=== PATIENT | female | born 1950 | race Two or more races ===

== ENCOUNTER 2024-04-28 09:06 | Inpatient (IN) | payer MEDICARE, MEDICAID, SELFPAY ==
[2024-04-28] VITALS (10 sets, daily range): BP systolic 126–194; BP diastolic 72–102; PULSE 60–84; RESP 16–24; TEMP 36.2–37.3; O2SAT 95–98; BMI 28.3
--- NOTE | 2024-04-28 10:53 | PD.EDSEIZ ---
ED Seizures RME/HPI General Chief Complaint: Seizure Stated Complaint: SEIZURE Time Seen by Provider: 04/28/24 10:39 Arrival date/time: 04/28/24 09:06 RME / HPI RME / HPI Narrative: DR. NAPIER MAIN ED EVALUATION: 74 year old female with presents to the Emergency Department [facility] from home accompanied by her granddaughter with complaint of seizure lasted 10 seconds. Per granddaughter, patient has dementia and she usually helps her in the morning to get up; patient got up to urinate and then changed into her clothes. When patient bent over to change, the patient stiffened and granddaughter assisted her and patient started shaking and started snoring. Granddaughter denies any recent sickness. No cough, cold, congestion, fevers, chills, constipation, or other symptoms. Granddaughter denies any seizures in the past. No new medications. No tobacco, alcohol, or substance use. No fall or injury. Per granddaughter, patient has been having diarrhea intermittently for a week, first few days is was about 5 episodes per day, no less and first day the stools were loose and the next days it was watery. Granddaughter reports that patient has been eating and drinking well, normal appetite. PMHx: Baseline Alzheimer's dementia, hypertension, hypothyroidism, and non-insulin dependent type 2 diabetes mellitus. Patient is on a baby ASA. Social Hx: No tobacco, alcohol, or substance use. Related Data Home Medications ?Medication ?Instructions ?Recorded ?Confirmed aspirin 81 mg tablet,delayed 81 mg DAILY 05/02/23 05/02/23 release atorvastatin 20 mg tablet 20 mg DAILY 05/02/23 05/02/23 levothyroxine 50 mcg tablet 50 mcg DAILY 05/02/23 05/02/23 losartan 50 mg tablet 50 mg DAILY 05/02/23 05/02/23 metformin 500 mg tablet 500 mg BID 05/02/23 05/02/23 mirtazapine 7.5 mg tablet 7.5 mg DAILY 05/02/23 05/02/23 Allergies Allergy/AdvReac Type Severity Reaction Status Date / Time No Known Allergies Allergy Verified 05/02/23 05:24 Review of Systems Review of Systems ROS Unobtainable: unobtainable due to mental status and unobtainable due to medical condition Past Medical History Past Medical History NEUROLOGIC: Positive Dementia and Seizures CARDIAC: Positive Hypertension; Negative Congestive Heart Failure RESPIRATORY: Negative Chronic Obstructive Pulmonary Disease (COPD) GENITOURINARY: Negative Renal Disease ENDOCRINE: Positive Diabetes Mellitus Type 2; Negative Diabetes Mellitus Type 1 Social History SMOKING STATUS: Never smoker SUBSTANCE USE: does not use ALCOHOL: Never ED Exam Narrative Physical exam: GENERAL APPEARANCE: awake, but is not able to answer questions to assess orientation, generally well-appearing, no acute distress. HEENT: NC, AT. MMM. EOMI, circumferential subconjunctival hemorrhage on the right side, oropharynx clear. NECK: Supple without lymphadenopathy. No stiffness or restricted ROM. HEART: Normal rate and regular rhythm, normal S1/S1, no m/r/g LUNGS: CTAB, moving air well. No crackles or wheezes are heard. ABDOMEN: Soft, nontender, nondistended with good bowel sounds heard. BACK: No midline C/T/L spine pain or deformity, No CVAT, no obvious deformity. EXTREMITIES: Without cyanosis, clubbing or edema. MUSCULOSKELETAL: FROM of all major joints, no chest tenderness NEUROLOGICAL: awake, but is not able to answer questions to assess orientation Skin: Warm and dry without any rash. Course Quality Measures none Orders Category Date Time Status In and Out Catheter X1 Care 04/28/24 12:[address] head/brain wo con Stat Exams 04/28/24 11:02 Completed XR chest 1V Stat Exams 04/28/24 11:05 Completed CBC Stat Lab 04/28/24 11:20 Completed CMP [Comprehensive Metabolic Panel] Stat Lab 04/28/24 11:20 Completed Urinalysis Stat Lab 04/28/24 12:04 Completed Reevaluation(s) Reevaluation #1: Re-assessment at the time of disposition demonstrates that the patient is in no acute distress and now talking 1-2 sentences, before was not talking at all but it is still not her normal per granddaughter. Will consult with Dr. Packer. Time: 13:34 Vital Signs Vital signs: Vital Signs Temperature 97.4 F 04/28/24 09:32 Pulse Rate 61 04/28/24 09:32 Respiratory Rate 16 04/28/24 09:32 Blood Pressure 143/88 H 04/28/24 09:32 Pulse Oximetry (%) 95 04/28/24 09:32 Oxygen Delivery Method Room Air 04/28/24 09:32 Seizure MDM Narrative MDM Narrative:: I, Cyn Skaggs, am scribing for and in the presence of Dr. Napier. Patient data External records reviewed:: EMS form Clinical information provided by:: EMS and family (granddaughter) Social determinants that could affect healthcare access:: none Patient has the following chronic illnesses:: Baseline Alzheimer's dementia, hypertension, hypothyroidism, and non-insulin dependent type 2 diabetes .mellitus How is presenting disease/condition affected by chronic disease/condition?: exacerbated by Evaluation data The following diagnostics were reviewed and interpreted by me:: lab results and radiology exam(s) Lab and/or radiology exams considered but not ordered:: none Interpretation Summary: Procedure(s): XR chest 1V Accession Number(s): [id number] cc: Serafin Napier MD; Yusef Rojo MD~ Examination: AP chest single view Technique one AP portable upright chest single view Exam date and time: April 28, 2024 1010 hours INDICATIONS: Weakness beginning 2 days ago. FINDINGS: Normal heart size No pneumonia or pulmonary edema Moderate osteopenia IMPRESSION: No pneumonia or pulmonary edema Dictated By: Yusef Rojo MD Procedure(s): CT head/brain wo con Accession Number(s): [id number] cc: Serafin Napier MD; Yusef Rojo MD~ Examination: CT brain head without contrast. 2-D sagittal coronal reconstructions Date and time of exam:April 28, 2024 1131 hours Comparison November 12, 2023 INDICATIONS: Seizure today CTDI: vol (mGy):50.1 DLP: (mGycm):1021 Technique: Multiple CT axial sections of the brain have been obtained, 5 mm slice thickness. Contrast has not been administered. 2-D sagittal, coronal reconstructions have been obtained Low dose protocols were performed. One or more of the following dose reduction techniques were used; automated exposure control, adjustment of the mA and/or KV according to patient size, use of iterative reconstruction technique. Findings: Mild ventricular enlargement. Intra-axial or extra-axial hemorrhage density is not seen. No mass effect or midline shift Basal cisterns are not remarkable. Fourth ventricle is midline. Cranial vault intact. Impression: Negative for acute hemorrhage, mass effect or midline shift Consider brain MRI follow-up, seizure protocol Dictated By: Yusef Rojo MD Medications / Prescriptions Medications or Prescriptions considered but not ordered:: none Medication administrations:: see above if any Consultations Consultation(s) initiated? (list below): Yes Consultation #1 (Physician, Specialty, Details): Discussed test HPI, PMHx, lab, radiology results and/or management with Dr. Packer. We discussed the circumferential subconjunctival hemorrhage on the right side as well and Dr. Packer thinks that today must be her second seizure. Usually if it was her first seizure she would not start Keppra but taking into account this is probably her second one she will start the patient on Keppra and admit the patient for an EEG and a MRI. Will consult an admission to the hospitalist. Time: 13:36 Consultation #2 (Physician, Specialty, Details): Discussed test HPI, PMHx, lab, radiology results and/or management with hospitalist. Will admit for further evaluation and management. Accepts patient for admission. Time: 13:43 Diagnosis Seizure Differential Diagnosis: generalized seizure, new onset seizure and epileptic seizure Most likely diagnosis given after review of the tests above:: New onset seizures Admission Indicated Admission indicated?: indicated Admission Request Was there a request for admission?: Yes Admission Attestation Admission request attestation: Discussed case with [] from Hospitalist service regarding admission. Discussed patients ED course, exam findings, labs, and radiology results. The Hospitalist [agrees,declines] to accept the patient for admission. Disposition Plan Disposition Plan: Admit Discharge Plan Plan Patient Disposition: Admit Acute Care w/in Hospital Prescriptions/Referrals Prescriptions/Med Rec: No Action losartan 50 mg tablet 50 mg DAILY Patient Comments: TAKE 1 TABLET BY MOUTH EVERY DAY FOR 30 DAYS metformin 500 mg tablet 500 mg BID Patient Comments: TAKE 1 TABLET BY MOUTH TWICE A DAY WITH MEAL 15 DAYS atorvastatin 20 mg tablet 20 mg DAILY aspirin 81 mg tablet,delayed release (DR/EC) 81 mg DAILY Patient Comments: TAKE 1 TABLET BY MOUTH EVERY DAY levothyroxine 50 mcg tablet 50 mcg DAILY Patient Comments: TAKE 1 TABLET BY MOUTH EVERY DAY mirtazapine 7.5 mg tablet 7.5 mg DAILY Patient Comments: TAKE 1 TABLET BY MOUTH EVERYDAY AT BEDTIME Referrals: No Primary/Family,Physician [Primary Care Provider] - In 1 week Problem List Clinical Impression: New onset seizure Patient/Caregiver Discharge Instructions Print Language: Kittitian Stand Alone Forms: Kalina Award Info., Patient Portal Info Letter
--- NOTE | 2024-04-28 11:02 | XR_ITS ---
Examination: CT brain head without contrast. 2-D sagittal coronal reconstructions Date and time of exam:April 28, 2024 1131 hours Comparison November 12, 2023 INDICATIONS: Seizure today CTDI: vol (mGy):50.1 DLP: (mGycm):1021 Technique: Multiple CT axial sections of the brain have been obtained, 5 mm slice thickness. Contrast has not been administered. 2-D sagittal, coronal reconstructions have been obtained Low dose protocols were performed. One or more of the following dose reduction techniques were used; automated exposure control, adjustment of the mA and/or KV according to patient size, use of iterative reconstruction technique. Findings: Mild ventricular enlargement. Intra-axial or extra-axial hemorrhage density is not seen. No mass effect or midline shift Basal cisterns are not remarkable. Fourth ventricle is midline. Cranial vault intact. Impression: Negative for acute hemorrhage, mass effect or midline shift Consider brain MRI follow-up, seizure protocol
--- NOTE | 2024-04-28 11:05 | XR_ITS ---
Examination: AP chest single view Technique one AP portable upright chest single view Exam date and time: April 28, 2024 1010 hours INDICATIONS: Weakness beginning 2 days ago. FINDINGS: Normal heart size No pneumonia or pulmonary edema Moderate osteopenia IMPRESSION: No pneumonia or pulmonary edema
--- NOTE | 2024-04-28 11:27 | PC.NURSE ---
PATIENT TAKEN TO CT AT THIS TIME.
[2024-04-28 11:43] LABS: Basophils % (Auto) 0 % (0-2.5); Eosinophils % (Auto) 0 % (0-10); Hematocrit 36.8 % (36.0-46.0); Hemoglobin 10.9 g/dL (12.0-16.0); Immature Granulocytes % (Auto) 1 % (0-0); Immature Granulocytes Auto 0.07 Thou/mm3 (0.00-0.00); Lymphocytes % (Auto) 9 % (10-50); Mean Corpuscular HGB Conc 29.6 g/dl (31.0-37.0); Mean Corpuscular Hemoglobin 23.6 pg (25.0-35.0); Mean Corpuscular Volume 80 fL (80-100); Monocytes # (Auto) 0.4 Thou/mm3 (0.0-0.8); Monocytes % (Auto) 4 % (0-12); Neutrophils # (Auto) 10.1 Thou/mm3 (1.8-7.7); Neutrophils % (Auto) 87 % (37-80); Nucleated Red Blood Cell % 0 /100 WBC (0); Platelet Count 241 Thou/mm3 (140-440); RDW Standard Deviation 44.8 fL (36.4-46.3); Red Blood Count 4.61 Miln/mm3 (4.00-5.20); White Blood Count 11.6 Thou/mm3 (3.6-11.0)
[2024-04-28 12:05] LABS: Alanine Aminotransferase 12 U/L (10-49); Albumin, Serum 4.2 gm/dL (3.4-4.8); Albumin/Globulin Ratio 1.6 (1.2-2.2); Alkaline Phosphatase 71 U/L (46-116); Anion Gap 10 (7-16); Aspartate Amino Transferase 18 U/L (0-34); BUN/Creatinine Ratio 23 Ratio (12-20); Blood Urea Nitrogen 18 mg/dL (9-23); Calcium 10.1 mg/dL (8.3-10.6); Calcium (Corrected) 10.1 mg/dL (8.5-10.1); Carbon Dioxide 25.6 mMol/L (20.0-31.0); Chloride 108 mMol/L (98-107); Creatinine (Component) 0.8 mg/dL (0.6-1.3); Estimated Creatinine Clearance 57.1 mL/min (>60); Globulin 2.6 gm/dL (2.3-3.5); Glucose 169 mg/dL (74-106); Osmolality,Calculated 292 (275-295); Potassium 4.4 mMol/L (3.4-5.1); Sodium 144 mMol/L (136-145); Total Protein 6.8 gm/dL (5.7-8.2); eGFR > 60 See Note
[2024-04-28 12:07] LABS: Collection Type, Urine Catheter; RBC,Urine 0 /hpf (0-3); Squamous Epithelial Cell,Urine 0 /hpf (0-5)
[2024-04-28 12:26] LABS: Amorphous Crystals,Urine Present (Absent); Bacteria,Urine Rare; Bilirubin,Urine Negative (Negative); Blood,Urine Negative (Negative); Clarity,Urine Clear (Clear/Hazy); Color,Urine Yellow (Lt Yel-Yel); Glucose, Urine Negative (Negative); Ketones,Urine Negative (Negative); Leukocyte Esterase,Urine Negative (Negative); Nitrite,Urine Positive (Negative); PH,Urine 5.5 (5.0-7.0); Protein,Urine 1+ (Neg - Trace); Specific Gravity,Urine 1.021 (1.001-1.035); Urobilinogen,Urine Negative mg/dL (0.0-1.0); WBC,Urine 2 /hpf (0-5)
[2024-04-28] MEDS: levETIRAcetam INJ 100 MG/ML VIAL 5ML 1000 MG IVP (14:01)
--- NOTE | 2024-04-28 15:48 | ESHP_ITS ---
<Statement entered by Krzysztof Gregory MD - 04/28/24 16:46> This patient is a 74-year-old female with past medical history of seizures, Parkinson disease, Alzheimer dementia, hypertension, hypothyroidism, [id number] type 2 diabetes presented with tonic-clonic seizures witnessed by the family. Apparently, patient had an episode of subconjunctival hemorrhage in right eye 2 days ago and possible? Seizure unwitnessed. Patient has a history of syphilis infection possibly treated per patient's niece. There was a concern for severe dementia as patient ate dog feces according to niece. Neurology, 's regarding was consulted to recommended to give loading dose of Keppra and recommended to order EEG and MRI brain for further evaluation. We ordered creatinine kinase. Labs were showing stable hemoglobin and WBC. Electrolytes unremarkable. Kidney functions stable. Aspiration precautions, nurse swallow screen and seizure precautions ordered. Ativan 2 mg ordered every 15 minute for breakthrough seizures. Will follow-up with MRI and EEG with neurology recommendations. Only levothyroxine was resumed for tomorrow morning. Patient is not taking any medications for parkinsonism. All labs and orders were reviewed. I saw and examined the patient, and I agree with current management stated by Dr Cristian MD,PGY1. Plan of care was discussed with the attending physician and resident physician. Disclaimer: Despite multiple revisions, due to the dictation software being used, the document bellow may not be free of grammatical errors including phonetic/typographic errors. However, this does not deter from our commitment to providing health care in the patient's best interest in mind. Dr. Colt MD, PGY 2 Documentation for date of: 04/28/24 HPI History of Present Illness History of present illness: Amy Ventura is a 74-year-old female with past medical history of Parkinson's disease, dementia, hypothyroidism, type 2 diabetes mellitus, hypertension, and hyperlipidemia who presents to the ED on 04/28 after witnessed seizure episode. Patient lives with her granddaughter, who is her associate sales representative, and witnessed 10 to 15 seconds seizure while at home at approximately 8:15 AM. Granddaughter describes stiff body posture and was helped to the ground, afterwards patient noted to have blood in oral cavity and had a loud snore. At baseline, patient is oriented to self and birthdate but not to year or place and incontinent with her bowel movements and urination. She is also normally very active but was very lethargic yesterday. Of note, patient also has scleral hemorrhage that was not present Thursday evening but was Thursday morning. She does have a history of a seizure 1 time approximately a year ago after drinking a bottle of hand starch and prosize mixer and was taken care of at [facility]. Given that seizure was attributable to consuming hand starch and prosize mixer, she was not discharged with an AED nor did she follow-up with a neurologist. Niece at bedside also states that patient had consumed dog feces a couple of days ago and was treated for syphilis about four years ago at [facility] in [place]. Niece also states that patient is not on any medications for Parkinson's. In ED VSS, WBC 11.6, Hgb 10.9, CMP unremarkable, UA clean, U tox negative. CT head showed brain atrophy with pseudo ventriculomegaly but no hemorrhage, mass effect, or midline shift. CXR negative for acute cardiopulmonary disease. EKG showed sinus bradycardia with heart rate of 58 bpm. Given loading dose of Keppra 1 g IV x 1 and started maintenance LR at 75 cc/h. Admitted for further evaluation of seizures. PMHx: Parkinson's disease, dementia, hypothyroidism, type 2 diabetes mellitus, hypertension, hyperlipidemia Medications: atorvastatin 20 mg, levothyroxine 50 mcg, metformin 500 mg, losartan 50 mg, aspirin 81 mg FHx: Dementia in her mother SHx: No current or previous history of smoking cigarettes, drinking alcohol, or illicit drug use; lives with granddaughter and [id number] PSHx: Tonsillectomy Exam Vital Signs Temp Pulse Resp BP Pulse Ox O2 Del Method 97.4 F 60 17 126/89 H 97 Room Air 04/28/24 09:32 04/28/24 14:12 04/28/24 14:12 04/28/24 14:12 04/28/24 14:12 04/28/24 14:12 Narrative Exam General: Postictal, occasionally opens eyes to voice, follows some commands HEENT: Dried blood on right side of mouth, right-sided scleral hemorrhage, unable to obtain full review of oral cavity Cardiovascular: Bradycardic, regular rhythm, loud systolic murmur appreciated Pulmonary: clear to auscultation bilaterally, no rales/rhonchi/wheezes Abdominal: soft, non-tender, non-distended, no rebound/guarding, normal bowel sounds present Musculoskeletal: no peripheral edema Skin: warm and dry, intact, no rashes Neuro: Postictal, bilateral pill-rolling tremor Results: Labs 04/30/24 05:22 04/30/24 05:22 Labs: Short CBC 04/28/24 Range/Units 11:20 WBC 11.6 H (3.6-11.0) Thou/mm3 Hgb 10.9 L (12.0-16.0) g/dL Hct 36.8 (36.0-46.0) % Plt Count 241 (140-440) Thou/mm3 BMP 04/28/24 11:20 Sodium 144 Potassium 4.4 Chloride 108 H Carbon Dioxide 25.6 BUN 18 Creatinine 0.8 Glucose 169 H Calcium 10.1 Liver Function 04/28/24 Range/Units 11:20 Total Bilirubin 1.0 (0.3-1.2) mg/dL AST 18 (0-34) U/L ALT 12 (10-49) U/L Alkaline Phosphatase 71 (46-116) U/L Albumin 4.2 (3.4-4.8) gm/dL Urine 04/28/24 Range/Units 12:04 Urine Color Yellow (Lt Yel-Yel) Urine Clarity Clear (Clear/Hazy) Urine pH 5.5 (5.0-7.0) Ur Specific [place] 1.021 (1.001-1.035) Urine Protein 1+ A (Neg - Trace) Urine Glucose (UA) Negative (Negative) Quality Measures Quality Measures none Advance care planning discussed with:: other Medications Home Medications and Allergies Home Medications ?Medication ?Instructions ?Recorded ?Confirmed ?Type aspirin 81 mg tablet,delayed 81 mg PO DAILY 05/02/23 0 04/28/24 History release atorvastatin 20 mg tablet 20 mg PO DAILY 05/02/2304/10 History levothyroxine 50 mcg tablet 50 mcg PO DAILY 05/02/23 0 04/28/24 History losartan 50 mg tablet 50 mg PO DAILY 05/02/2304/10 History metformin 500 mg tablet 500 mg PO DAILY 05/02/23 History Allergies Allergy/AdvReac Type Severity Reaction Status Date / Time No Known Allergies Allergy Verified 05/02/23 05:24 Visit Medications Acetaminophen (Acetaminophen Supp 650 Mg Supp) 650 mg LA Q6HR PRN PRN Reason: PAIN OR FEVER > 100.4 Stop: 05/28/24 15:23 Dextrose (Dextrose 50%-Water Inj 50 Ml Syringe) 25 ml IV Q15MIN PRN PRN Reason: BG 50-70 responsive npo pt Stop: 05/28/24 15:23 Dextrose (Dextrose 50%-Water Inj 50 Ml Syringe) 50 ml IV Q15MIN PRN PRN Reason: BG <50 OR BG <70 & pt unresponsive Stop: 05/28/24 15:23 Glucagon (Glucagon Inj 1 Mg Vial) 1 mg IM Q15MIN PRN PRN Reason: BG <70, and no IV access Heparin Sodium (Porcine) (Heparin Sod Inj 5000 Unit/Ml Vial) 5,000 unit SC Q12HR RIKI Stop: 05/12/24 20:59 Lactated Ringer's (Lactated Ringers) 1,000 mls @ 75 mls/hr IV .[id number] RIKI Stop: 05/28/24 15:29 Insulin Human Lispro (Insulin Lispro (Admelog) 1 Unit/0.01 Ml Unit) 0 unit SC Q6HR RIKI; Protocol Stop: 05/28/24 17:59 Ondansetron HCl (Ondansetron Inj 2 Mg/Ml Inj 2 Ml) 4 mg IV Q6H PRN; Protocol PRN Reason: NAUSEA OR VOMITING Stop: 05/28/24 15:23 Pantoprazole Sodium (Pantoprazole Inj 40 Mg Vial) 40 mg IVP QDAY RIKI Stop: 05/29/24 08:59 Discontinued Medications Levetiracetam (Levetiracetam Inj 100 Mg/Ml Vial 5ml) 1,000 mg IVP X1 ONE Stop: 04/28/24 13:43 Last Admin: 04/28/24 14:01 Dose: 1,000 mg Assessment & Plan Plan Amy Ventura is a 74-year-old female with past medical history of Parkinson's disease, dementia, hypothyroidism, type 2 diabetes mellitus, hypertension, and hyperlipidemia who presents to the ED on 04/28 after witnessed seizure episode. Admitted for further evaluation of seizures. #Tonic seizure #History of seizure secondary to consumption of hand starch and prosize mixer Witnessed seizure by granddaughter for 10 to 15 seconds in a.m. and was still postictal upon evaluation in early afternoon. Noted to have dried blood on right side of mouth as well as right-sided scleral hemorrhage. Given loading dose of Keppra in ED of 1 g IV and will continue 500 mg IV twice daily per neurology recommendations. U tox negative, creatinine kinase normal. ? Neurology consulted, appreciate recommendations ? Keppra 500 mg IV twice daily ? As needed Ativan for breakthrough seizures ? Follow-up EEG ? Follow-up MRI ? N.p.o. ? Failed nurse swallow screen, pending swallow evaluation ? Aspiration precautions ? Seizure precautions, q4hr neurochecks #History of syphilis #Reactive syphilis serology ? Follow-up VDRL and treponemal testing #Parkinson's disease #Dementia At baseline, patient is A&O x 2, normally very active, also incontient with BMs and when urinating. Per niece and granddaughter, not on any Parkinson drugs at home. CT head showed brain atrophy with pseudo ventriculomegaly. ? Continue to monitor and follow-up outpatient #Hypothyroidism ? Home levothyroxine 50 mcg a CVR, pending swallow eval #Type 2 diabetes mellitus A1c 6.7% on this admission. Home metformin 500 mg daily. ? SSI step 1 every 6 hours ? Hypoglycemic protocol in place #Hypertension ? Home losartan 50 mg p.o. daily, pending swallow eval #Hyperlipidemia ? Home atorvastatin 20 mg p.o. daily, pending swallow eval Hospital management: Disposition: Seizure workup, neurology following, pending MRI and EEG Fluids: None Diet: N.p.o., pending speech evaluation Lines: PIV DVT prophylaxis: Heparin SC BID GI prophylaxis: Pantoprazole 40 mg IV daily CODE STATUS: full code ----- Plan discussed with attending physician Dr. Jimenez and senior resident physician Dr. Colt Foster MD PGY-1 Internal Medicine Attending Provider Attestation/Addendum I have discussed and was present for the essential components of the history, physical examination, diagnosis, and treatment plan with the resident. I agree with the patient's care as documented by the resident and amended herein by me. Jeff Jimenez DO. Although this document has been carefully reviewed, there may still be some phonetic and other typographical errors. These errors are purely grammatical due to imperfections in the software program and should not be construed in any way to compromise the substance of the patient's medical care during this visit.
--- NOTE | 2024-04-28 15:49 | EKG_ITS ---
[facility] Test Date: 2024-04-28 Pat Name: EDNA ALEXANDRA Department: Room: - Gender: Female Ward Clerk: : [id number] Requested By: Krzysztof Gregory Order Number: [id number] Reading MD: Krzysztof Gregory Measurements Intervals [place] Rate: 58 P: 18 TX: 183 QRS: -14 QRSD: 79 T: 111 QT: 433 QTc: 427 Interpretive Statements SINUS BRADYCARDIA LEFT VENTRICULAR HYPERTROPHY AND ST-T CHANGE [VOLTAGE CRITERIA PLUS ST/T ABNORMALITY] No previous ECG available for comparison /store/S0/[id number]/ecg/[id number].pdf
[2024-04-28] MEDS: RINGERS LACTATED 1000 ML 1,000 ML 75 ML IV (16:18)
[2024-04-28 16:31] LABS: Creatine Kinase 41 U/L (34-171); Magnesium 2.1 mg/dL (1.6-2.6)
[2024-04-28 16:57] LABS: MHATP/TP-PA* See Sep Rpt; Syphilis Reactive (Nonreactive)
--- NOTE | 2024-04-28 17:11 | PC.NURSE ---
DR. LYNCH AT BEDSIDE AND REVIEWED EKG.
[2024-04-28 17:45] LABS: Amphetamine/Methamp Scrn,U Negative (Negative); Barbiturate Screen,Urine Negative (Negative); Benzodiazepines Screen,Urine Negative (Negative); Benzoylecgonine Screen, Ur Negative (Negative); Fentanyl Screen,Urine Negative (Negative); Opiate Screen,Urine Negative (Negative); THC Screen,Urine Negative (Negative)
--- NOTE | 2024-04-28 21:35 | PD.NEUROCONS ---
History of Present Illness Data of Consult Requesting Physician: Norbert Jimenez DO Primary Care Provider: Physician No Primary/Family Consult Narrative cc:: cc: Norbert Jimenez, DO Meds Home Medications and Allergies Home Medications ?Medication ?Instructions ?Recorded ?Confirmed ?Type aspirin 81 mg tablet,delayed 81 mg PO DAILY 05/02/23 04/28/24 History release atorvastatin 20 mg tablet 20 mg PO DAILY 05/02/23 04/28/24 History levothyroxine 50 mcg tablet 50 mcg PO DAILY 05/02/23 04/28/24 History losartan 50 mg tablet 50 mg PO DAILY 05/02/23 04/28/24 History metformin 500 mg tablet 500 mg PO DAILY 05/02/23 04/28/24 History Allergies Allergy/AdvReac Type Severity Reaction Status Date / Time No Known Allergies Allergy Verified 05/02/23 05:24 Exam - Neurology Vital Signs Temp Pulse Resp BP Pulse Ox O2 Del Method 98.4 F 61 19 194/98 H 97 Room Air 04/28/24 21:29 04/28/24 21:29 04/28/24 21:29 04/28/24 21:29 04/28/24 21:29 04/28/24 21:29 Results Labs 04/28/24 11:20 04/28/24 11:20 Labs: Short CBC 04/28/24 Range/Units 11:20 WBC 11.6 H (3.6-11.0) Thou/mm3 Hgb 10.9 L (12.0-16.0) g/dL Hct 36.8 (36.0-46.0) % Plt Count 241 (140-440) Thou/mm3 BMP 04/28/24 11:20 Sodium 144 Potassium 4.4 Chloride 108 H Carbon Dioxide 25.6 BUN 18 Creatinine 0.8 Glucose 169 H Calcium 10.1 Cardiac Enzymes 04/28/24 Range/Units 11:20 Total Creatine Kinase 41 (34-171) U/L Liver Function 04/28/24 Range/Units 11:20 Total Bilirubin 1.0 (0.3-1.2) mg/dL AST 18 (0-34) U/L ALT 12 (10-49) U/L Alkaline Phosphatase 71 (46-116) U/L Albumin 4.2 (3.4-4.8) gm/dL Urine 04/28/24 Range/Units 12:04 Urine Color Yellow (Lt Yel-Yel) Urine Clarity Clear (Clear/Hazy) Urine pH 5.5 (5.0-7.0) Ur Specific [place] 1.021 (1.001-1.035) Urine Protein 1+ A (Neg - Trace) Urine Glucose (UA) Negative (Negative)
[2024-04-28] MEDS: HEPARIN SOD INJ 5000 UNIT/ML VIAL SC (21:56)
[2024-04-28] MEDS: hydrALAZINE INJ 20 MG/ML VIAL 10 MG IV (21:56)
[2024-04-29] VITALS (11 sets, daily range): BP systolic 136–194; BP diastolic 68–88; PULSE 50–81; RESP 16–24; TEMP 36.1–37.2; O2SAT 95–98; BMI 27.8
--- NOTE | 2024-04-29 | XR_ITS ---
Examination: MRI brain without intravenous contrast. Date and time of exam: April 29, 2024 1800 hours Comparison May 02, 2023 INDICATIONS: Seizure history, dementia, type 2 diabetes, hemorrhage in the right eye 2 days ago Technique: Multiple axial and sagittal images of the brain obtained. Siemens high-resolution 1.5 Pippa short bore scanners utilized. Sagittal sections, T1-weighted, TR 500, TE 14, are performed. Axial sections proton-density and T2-weighted have been obtained. Inversion recovery axial images, TR 9, 260, TE 111, TI 2500. Diffusion weighted images, axial sections, TR 4800, TE 128, B value 1000 Axial sections, ADC map, TR 4800, TE 128 Findings: Enlargement of the sella turcica is not present. The optic chiasm and infundibular are not remarkable. Prepontine and interpeduncular cisterns are not enlarged. There is no localized enlargement of the medulla or billy. Fourth ventricle and cerebellar tonsils appear normal in position. No subacute area of hemorrhage density is seen. Mass in the cerebellopontine angle region is not evident. Globes symmetrical. Orbital musculature including medial lateral rectus muscles do not exhibit abnormality. Diffusion-weighted images demonstrate no focus of restricted diffusion. Increased white matter signal prominent Significant chronic ethmoid frontal sinusitis Mass effect upon the ventricular system is not identified. Impression: Negative for acute hemorrhage mass effect or midline shift No acute infarct Prominent chronic microvascular white matter change Prominent atrophy
--- NOTE | 2024-04-29 01:08 | PC.NURSE ---
Called Dr. Chung patients blood pressure is 194/82. Provider will place orders.
[2024-04-29] MEDS: hydrALAZINE INJ 20 MG/ML VIAL 10 MG IV (01:18)
[2024-04-29] MEDS: DiphenhydrAMINE INJ 50 MG/ML VIAL 12.5 MG IV (01:40)
[2024-04-29 04:59] LABS: Basophils % (Auto) 0 % (0-2.5); Eosinophils % (Auto) 0 % (0-10); Hematocrit 38.1 % (36.0-46.0); Hemoglobin 11.5 g/dL (12.0-16.0); Immature Granulocytes % (Auto) 0 % (0-0); Immature Granulocytes Auto 0.04 Thou/mm3 (0.00-0.00); Lymphocytes # (Auto) 2.1 Thou/mm3 (1.0-4.8); Lymphocytes % (Auto) 22 % (10-50); Mean Corpuscular HGB Conc 30.2 g/dl (31.0-37.0); Mean Corpuscular Hemoglobin 24.2 pg (25.0-35.0); Mean Corpuscular Volume 80 fL (80-100); Monocytes # (Auto) 0.5 Thou/mm3 (0.0-0.8); Monocytes % (Auto) 5 % (0-12); Neutrophils # (Auto) 6.8 Thou/mm3 (1.8-7.7); Neutrophils % (Auto) 72 % (37-80); Nucleated Red Blood Cell % 0 /100 WBC (0); Platelet Count 246 Thou/mm3 (140-440); RDW Standard Deviation 44.9 fL (36.4-46.3); Red Blood Count 4.75 Miln/mm3 (4.00-5.20); White Blood Count 9.4 Thou/mm3 (3.6-11.0)
[2024-04-29 05:21] LABS: Glucose Estimated Average 140 mg/dL (80-131); Hemoglobin A1C 6.5 % Hgb (4.8-6.0)
[2024-04-29 05:22] LABS: Anion Gap 10 (7-16); BUN/Creatinine Ratio 17 Ratio (12-20); Blood Urea Nitrogen 12 mg/dL (9-23); Calcium 9.8 mg/dL (8.3-10.6); Carbon Dioxide 25.6 mMol/L (20.0-31.0); Chloride 106 mMol/L (98-107); Creatinine (Component) 0.7 mg/dL (0.6-1.3); Estimated Creatinine Clearance 65.3 mL/min (>60); Glucose 120 mg/dL (74-106); Osmolality,Calculated 283 (275-295); Potassium 3.7 mMol/L (3.4-5.1); Sodium 142 mMol/L (136-145); Triglycerides 112 mg/dL (30-150); eGFR > 60 See Note
[2024-04-29 05:26] LABS: Cholesterol 145 mg/dL (132-200); HDL Cholesterol 36 mg/dL (40-60); LDL Cholesterol,Calculated 87 mg/dL (0-130); Phosphorous 2.8 mg/dL (2.4-5.1); Thyroid Stimulating Hormone 4.23 uIU/mL (0.55-4.78)
[2024-04-29] MEDS: RINGERS LACTATED 1000 ML 1,000 ML 75 ML IV (05:54)
[2024-04-29] MEDS: LEVOTHYROXINE SODIUM 25 MCG TABLET 50 MCG PO (06:27)
[2024-04-29] MEDS: LOSARTAN POTASSIUM 25 MG TABLET 50 MG PO (06:27)
--- NOTE | 2024-04-29 06:27 | PC.NURSE ---
DR. LETTY TREJO WITH [facility]
[2024-04-29] MEDS: levETIRAcetam INJ 100 MG/ML VIAL 5ML 500 MG IVP ×2 (08:46→20:33)
[2024-04-29] MEDS: ASPIRIN EC 81 MG TABEC PO (08:46)
[2024-04-29] MEDS: HEPARIN SOD INJ 5000 UNIT/ML VIAL SC ×2 (08:46→20:33)
[2024-04-29] MEDS: PANTOPRAZOLE INJ 40 MG VIAL IVP (08:46)
--- NOTE | 2024-04-29 09:55 | PC.SS ---
Initial assessment: this is 74 year old female admitted for seizures. Patient's granddaughter, Jenn at bedside to provided information. Jaxon confirmed home demographic information. Patient lives at home with granddaughter and Jenn's partner Jeanette. Patient able to complete ADL's with some assistance. Patient does not use DME at home. Patient follows [facility] in [place] for primary care, unknown physician. Patient also followed by neurologist out of [facility]. The designated emergency contact is Jenn. Jenn was provided with advance directive to complete. Family is considering the need for possible hospital bed, aware Physician/PT to assess the patient to determine DME needs. D/c plan: Home Next of Kin: Jenn
--- NOTE | 2024-04-29 11:55 | ESPR_ITS ---
Documentation for date of: 04/29/24 Subjective Subjective Interval history: Patient was seen and examined at the bedside. Patient received hydralazine 10 mg times 2 at night due to elevated blood pressure. Blood pressure was elevated this morning therefore patient was started on amlodipine 2.5 mg and continue losartan 50 mg once daily. Labs showed normocytic anemia. Chemistry panel was unremarkable. A1c came out 6.5%. Dr Packer recommended to continue Keppra 500 twice daily and await on MRI brain without contrast and EEG results. We are keeping hydralazine 25 3 times daily as needed if SBP above 180. Fluids were discontinued. Bladder scan was performed as patient is demented which showed about 480 cc straight cath was performed. Repeat bladder scan showed 400 cc patient was encouraged on micturition. If patient continues to retain urine we will likely place Vergara catheter. Family was updated regarding the plan. Syphilis serology came positive most likely from past infection currently awaiting treponema pallidum test. Patient passed swallow screen was started on regular diet. LDL came 87. Will consider ID consultation if treatment with treponema pallidum come positive. All labs and orders were reviewed. Exam Vital Signs Temp Pulse Resp BP Pulse Ox O2 Del Method 97.0 F 70 20 171/88 H 96 Room Air 04/29/24 08:00 04/29/24 08:00 04/29/24 08:00 04/29/24 08:00 04/29/24 08:00 04/29/24 08:00 Narrative Exam General: Postictal, occasionally opens eyes to voice, follows some commands HEENT: Dried blood on right side of mouth, right-sided scleral hemorrhage, unable to obtain full review of oral cavity Cardiovascular: Bradycardic, regular rhythm, loud systolic murmur appreciated Pulmonary: clear to auscultation bilaterally, no rales/rhonchi/wheezes Abdominal: soft, non-tender, non-distended, no rebound/guarding, normal bowel sounds present Musculoskeletal: no peripheral edema Skin: warm and dry, intact, no rashes Neuro: Postictal, bilateral pill-rolling tremor Objective Labs 04/30/24 05:22 04/30/24 05:22 Labs: Laboratory Results - last 24 hr 04/28/24 04/28/24 04/29/24 11:20 12:04 04:35 WBC 11.6 H 9.4 RBC 4.61 4.75 Hgb 10.9 L 11.5 L Hct 36.8 38.1 MCV 80 80 MCH 23.6 L 24.2 L MCHC 29.6 L 30.2 L RDW Std Deviation 44.8 44.9 Plt Count 241 246 Neut % (Auto) 87 H 72 Lymph % (Auto) 9 L 22 [place] % (Auto) 4 5 Eos % (Auto) 0 0 Baso % (Auto) 0 0 Neut # (Auto) 10.1 H 6.8 Lymph # (Auto) 1.0 2.1 [place] # (Auto) 0.4 0.5 Eos # (Auto) 0.0 0.0 Baso # (Auto) 0.0 0.0 Immature Gran # (Auto) 0.07 H 0.04 H Absolute Nucleated RBC 0.00 0.00 Immature Gran % 1 H 0 Nucleated RBC % 0 0 Sodium 144 142 Potassium 4.4 3.7 D Chloride 108 H 106 Carbon Dioxide 25.6 25.6 Anion Gap 10 10 BUN 18 12 Creatinine 0.8 0.7 Estim Creat Clear Calc 57.1 L 65.3 eGFR > 60 > 60 BUN/Creatinine Ratio 23 H 17 Glucose [address] Glu mg/dL 140 H Hemoglobin A1c 6.5 H Calculated Osmolality 292 283 Calcium 10.1 9.8 Corrected Calcium 10.1 Phosphorus 3.0 2.8 Magnesium 2.1 2.0 Total Bilirubin 1.0 AST 18 ALT 12 Alkaline Phosphatase 71 Total Creatine Kinase 41 Total Protein 6.8 Albumin 4.2 Globulin 2.6 Albumin/Globulin Ratio 1.6 Triglycerides 112 Cholesterol 145 LDL Cholesterol, Calc 87 HDL Cholesterol 36 L Cholesterol/HDL Ratio 4.0 TSH 4.23 Ur Collection Type Catheter Urine Color Yellow Urine Clarity Clear Urine pH 5.5 Ur Specific [place] 1.021 Urine Protein 1+ A Urine Glucose (UA) Negative Urine Ketones Negative Urine Blood Negative Urine Nitrite Positive Urine Bilirubin Negative Urine Urobilinogen (Auto) Negative Ur Leukocyte Esterase Negative Urine RBC 0 Urine WBC 2 Ur Squamous Epith Cells 0 Amorphous Crystals Present A Urine Bacteria Rare Urine Opiates Screen Negative Urine Fentanyl Screen Negative Ur Barbiturates Screen Negative U Amphetamin/Meth Scrn Negative U Benzodiazepines Scrn Negative U Cocaine Metab Screen Negative U Marijuana (THC) Screen Negative Syphilis Serology Reactive A Quality Measures Quality Measures VTE prophylaxis Advance care planning discussed with:: other Assessment & Plan Assessment Current Active Medications: Generic Name Dose Route Start Last Admin Trade Name Jaysonq PRN Reason Stop Dose Admin Acetaminophen 650 mg 04/28/24 15:24 Acetaminophen Supp 650 Mg Supp UT 05/28/24 15:23 Q6HR PRN PAIN OR FEVER > 100.4 Amlodipine Besylate 2.5 mg 04/30/24 09:00 Amlodipine Besylate 5 Mg Tablet PO 05/30/24 08:59 QDAY RIKI Aspirin 81 mg 04/29/24 09:00 04/29/24 08:46 Aspirin Ec 81 Mg Tabec PO 05/29/24 08:59 81 mg DAILY RIKI Administration Atorvastatin Calcium 20 mg 04/29/24 21:00 Atorvastatin Calcium 20 Mg Tablet PO 05/29/24 20:59 HS RIKI Dextrose 25 ml 04/28/24 15:24 Dextrose 50%-Water Inj 50 Ml Syringe IV 05/28/24 15:23 Q15MIN PRN BG 50-70 responsive npo pt Dextrose 50 ml 04/28/24 15:24 Dextrose 50%-Water Inj 50 Ml Syringe IV 05/28/24 15:23 Q15MIN PRN BG <50 OR BG <70 & pt unresponsive Glucagon 1 mg 04/28/24 15:24 Glucagon Inj 1 Mg Vial IM Q15MIN PRN BG <70, and no IV access Heparin Sodium (Porcine) 5,000 unit 04/28/24 21:00 04/29/24 08:46 Heparin Sod Inj 5000 Unit/Ml Vial SC 05/12/24 20:59 5,000 unit Q12HR RIKI Administration Hydralazine HCl 25 mg 04/29/24 09:56 Hydralazine Hcl 25 Mg Tablet PO 05/29/24 09:59 TID PRN SBP>180 Insulin Human Lispro 0 unit 04/28/24 18:00 04/29/24 05:53 Insulin Lispro (Admelog) 1 Unit/0.01 Ml Unit SC 05/28/24 17:59 Not Given Q6HR [facility] Protocol Levetiracetam 500 mg 04/29/24 09:00 04/29/24 08:46 Levetiracetam Inj 100 Mg/Ml Vial 5ml IVP 05/29/24 08:59 500 mg Q12HR RIKI Administration Levothyroxine Sodium 50 mcg 04/29/24 06:00 04/29/24 06:27 Levothyroxine Sodium 25 Mcg Tablet PO 05/29/24 05:59 50 mcg ACBR RIKI Administration Lorazepam 2 mg 04/28/24 15:55 Lorazepam 2 Mg/Ml Vial IVP Q15MIN PRN BREAKTHROUGH SEIZURES Losartan Potassium 50 mg 04/29/24 01:45 04/29/24 06:32 Losartan Potassium 25 Mg Tablet PO 05/29/24 01:44 Not Given QDAY RIKI Ondansetron HCl 4 mg 04/28/24 15:24 Ondansetron Inj 2 Mg/Ml Inj 2 Ml IV 05/28/24 15:23 Q6H PRN NAUSEA OR VOMITING Protocol Pantoprazole Sodium 40 mg 04/29/24 09:00 04/29/24 08:46 Pantoprazole Inj 40 Mg Vial IVP 05/29/24 08:59 40 mg QDAY RIKI Administration Plan Amy Ventura is a 74-year-old female with past medical history of Parkinson's disease, dementia, hypothyroidism, type 2 diabetes mellitus, hypertension, and hyperlipidemia who presents to the ED on 04/28 after witnessed seizure episode. Admitted for further evaluation of seizures. 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 and was still postictal upon evaluation in early afternoon. Noted to have dried blood on right side of mouth as well as right-sided scleral hemorrhage. Given loading dose of Keppra in ED of 1 g IV and will continue 500 mg IV twice daily per neurology recommendations. U tox negative, creatinine kinase normal. ? Seizure-free for last 24 hours ? Neurology consulted, appreciate recommendations ? Keppra 500 mg IV twice daily ? As needed Ativan for breakthrough seizures ? Pending EEG and MRI brain without contrast ? Passed swallow screen started on regular diet ? Aspiration precautions ? Seizure precautions, q4hr neurochecks #History of syphilis #Reactive syphilis serology ?VDRL positive ? Pending treponemal testing ? Will likely consider ID consult if treponemal test come positive #Acute urinary retention ? Related to dementia ? Bladder scan showed more than 400 cc of urine ? Likely consider putting Vergara catheter if continues to retain urine about 400 cc #Parkinson's disease #Dementia At baseline, patient is A&O x 2, normally very active, also incontient with BMs and when urinating. Per niece and granddaughter, not on any Parkinson drugs at home. CT head showed brain atrophy with pseudo ventriculomegaly. ? Continue to monitor and follow-up outpatient #Hypothyroidism ?Resumed Home levothyroxine 50 mcg a CVR, #Type 2 diabetes mellitus A1c 6.7% on this admission. Home metformin 500 mg daily. ? SSI step 1 every 6 hours ? Hypoglycemic protocol in place # Hypertensive urgency ? Added hydralazine 25 3 times daily as needed if SBP above 180 ? Started amlodipine 2.5 mg once daily ? Home losartan 50 mg p.o. daily, #Hyperlipidemia ? Home atorvastatin 20 mg p.o. daily, Hospital management: Disposition: Seizure workup, neurology following, pending MRI and EEG Fluids: None Diet: Regular diet Lines: PIV DVT prophylaxis: Heparin SC BID GI prophylaxis: Pantoprazole 40 mg IV daily CODE STATUS: full code Patient was seen and discussed with attending physician, Dr. Tony Gregory MD, PGY 2 Attending Provider Attestation/Addendum I have discussed and was present for the essential components of the history, physical examination, diagnosis, and treatment plan with the resident. I agree with the patient's care as documented by the resident and amended herein by me. Jeff Jimenez, DO. Although this document has been carefully reviewed, there may still be some phonetic and other typographical errors. These errors are purely grammatical due to imperfections in the software program and should not be construed in any way to compromise the substance of the patient's medical care during this visit.
[2024-04-29] MEDS: INSULIN LISPRO (AdmeLOG) 1 UNIT/0.01 ML UNIT SC (12:14)
--- NOTE | 2024-04-29 13:20 | PD.RESPRO ---
Documentation for date of: 04/29/24 Subjective Subjective Interval history: Patient seen and assessed at bedside with family at bedside. Per family patient appears to be doing slightly better, but still lethargic at times and falls asleep sporadically. Patient responding to her name now but is otherwise confused. Patient understands Ukrainian but mostly speaks Lithuanian. Exam Vital Signs Temp Pulse Resp BP Pulse Ox O2 Del Method 97.0 F 70 20 171/88 H 96 Room Air 04/29/24 08:00 04/29/24 08:00 04/29/24 08:00 04/29/24 08:00 04/29/24 08:00 04/29/24 08:00 Narrative Exam General: Elderly female resting comfortably in bed. Answers to her name. Cardiovascular: Regular rate and rhythm. Loud ejection murmur on aortic area. Pulmonary: clear to auscultation bilaterally, no rales/rhonchi/wheezes Abdominal: soft, non-tender, non-distended, no rebound/guarding, normal bowel sounds present Musculoskeletal: no peripheral edema Skin: warm and dry, intact, no rashes Neuro: Alert. Responds to name. Able to follow simple command by giving thumbs up. Unable to assess strength. Objective Labs 04/30/24 05:22 04/30/24 05:22 Labs: Laboratory Results - last 24 hr 04/28/24 04/28/24 04/29/24 11:20 12:04 04:35 WBC 9.4 RBC 4.75 Hgb 11.5 L Hct 38.1 MCV 80 MCH 24.2 L MCHC 30.2 L RDW Std Deviation 44.9 Plt Count 246 Neut % (Auto) 72 Lymph % (Auto) 22 [place] % (Auto) 5 Eos % (Auto) 0 Baso % (Auto) 0 Neut # (Auto) 6.8 Lymph # (Auto) 2.1 [place] # (Auto) 0.5 Eos # (Auto) 0.0 Baso # (Auto) 0.0 Immature Gran # (Auto) 0.04 H Absolute Nucleated RBC 0.00 Immature Gran % 0 Nucleated RBC % 0 Sodium 142 Potassium 3.7 D Chloride 106 Carbon Dioxide 25.6 Anion Gap 10 BUN 12 Creatinine 0.7 Estim Creat Clear Calc 65.3 eGFR > 60 BUN/Creatinine Ratio 17 [address]ucose [address] Glu mg/dL 140 H Hemoglobin A1c 6.5 H Calculated Osmolality 283 Calcium 9.8 Phosphorus 3.0 2.8 Magnesium 2.1 2.0 Total Creatine Kinase 41 Triglycerides 112 Cholesterol 145 LDL Cholesterol, Calc 87 HDL Cholesterol 36 L Cholesterol/HDL Ratio 4.0 TSH 4.23 Urine Opiates Screen Negative Urine Fentanyl Screen Negative Ur Barbiturates Screen Negative U Amphetamin/Meth Scrn Negative U Benzodiazepines Scrn Negative U Cocaine Metab Screen Negative U Marijuana (THC) Screen Negative Syphilis Serology Reactive A Quality Measures Quality Measures none Advance care planning discussed with:: patient and other Assessment & Plan Assessment Current Active Medications: Generic Name Dose Route Start Last Admin Trade Name Freq PRN Reason Stop Dose Admin Acetaminophen 650 mg 04/28/24 15:24 Acetaminophen Supp 650 Mg Supp MD 05/28/24 15:23 Q6HR PRN PAIN OR FEVER > 100.4 Amlodipine Besylate 2.5 mg 04/30/24 09:00 Amlodipine Besylate 5 Mg Tablet PO 05/30/24 08:59 QDAY RIKI Aspirin 81 mg 04/29/24 09:00 04/29/24 08:46 Aspirin Ec 81 Mg Tabec PO 05/29/24 08:59 81 mg DAILY RIKI Administration Atorvastatin Calcium 20 mg 04/29/24 21:00 Atorvastatin Calcium 20 Mg Tablet PO 05/29/24 20:59 HS RIKI Dextrose 25 ml 04/28/24 15:24 Dextrose 50%-Water Inj 50 Ml Syringe IV 05/28/24 15:23 Q15MIN PRN BG 50-70 responsive npo pt Dextrose 50 ml 04/28/24 15:24 Dextrose 50%-Water Inj 50 Ml Syringe IV 05/28/24 15:23 Q15MIN PRN BG <50 OR BG <70 & pt unresponsive Glucagon 1 mg 04/28/24 15:24 Glucagon Inj 1 Mg Vial IM Q15MIN PRN BG <70, and no IV access Heparin Sodium (Porcine) 5,000 unit 04/28/24 21:00 04/29/24 08:46 Heparin Sod Inj 5000 Unit/Ml Vial SC 05/12/24 20:59 5,000 unit Q12HR RIKI Administration Hydralazine HCl 25 mg 04/29/24 09:56 Hydralazine Hcl 25 Mg Tablet PO 05/29/24 09:59 TID PRN SBP>180 Insulin Human Lispro 0 unit 04/28/24 18:00 04/29/24 12:14 Insulin Lispro (Admelog) 1 Unit/0.01 Ml Unit SC 05/28/24 17:59 1 unit Q6HR RIKI Administration Protocol Levetiracetam 500 mg 04/29/24 09:00 04/29/24 08:46 Levetiracetam Inj 100 Mg/Ml Vial 5ml IVP 05/29/24 08:59 500 mg Q12HR RIKI Administration Levothyroxine Sodium 50 mcg 04/29/24 06:00 04/29/24 06:27 Levothyroxine Sodium 25 Mcg Tablet PO 05/29/24 05:59 50 mcg ACBR RIKI Administration Lorazepam 2 mg 04/28/24 15:55 Lorazepam 2 Mg/Ml Vial IVP Q15MIN PRN BREAKTHROUGH SEIZURES Losartan Potassium 50 mg 04/29/24 01:45 04/29/24 06:32 Losartan Potassium 25 Mg Tablet PO 05/29/24 01:44 Not Given QDAY RIKI Ondansetron HCl 4 mg 04/28/24 15:24 Ondansetron Inj 2 Mg/Ml Inj 2 Ml IV 05/28/24 15:23 Q6H PRN NAUSEA OR VOMITING Protocol Pantoprazole Sodium 40 mg 04/29/24 09:00 04/29/24 08:46 Pantoprazole Inj 40 Mg Vial IVP 05/29/24 08:59 40 mg QDAY RIKI Administration Plan #Acute encephalopathy #Worsening dementia #? seizures Per granddaughter patient had a seizure prior to presentation to hospital. EEG interpretation pending MRI pending Continue Keppra As needed Ativan for breakthrough seizures #Hypertension #Hyperlipidemia #Diabetes #Hypothyroidism Continue management per primary team Case discussed with attending Dr Birdie Loja MD PGY3 Attending Provider Attestation/Addendum I personally have examined the patient findings, assessment and plan of care. Continue with the Keppra, follow seizure precautions. Will follow-up with the EEG as it becomes available
[2024-04-29] MEDS: ACETAMINOPHEN 325 MG TABLET 650 MG PO (14:20)
--- NOTE | 2024-04-29 15:17 | PC.SS ---
Rounding note: pending seizure work up, MRI and neurology recommendations.
--- NOTE | 2024-04-29 19:27 | PC.NURSE ---
Pt complaining of headache and increased confusion. Dr. Conn notified and ordered x1 dose of tylenol.
[2024-04-29] MEDS: ATORVASTATIN CALCIUM 20 MG TABLET PO (20:33)
[2024-04-30] VITALS (8 sets, daily range): BP systolic 128–159; BP diastolic 67–82; PULSE 55–78; RESP 15–24; TEMP 35.9–36.6; O2SAT 94–98; BMI 27.6
[2024-04-30 05:50] LABS: Basophils % (Auto) 1 % (0-2.5); Eosinophils # (Auto) 0.1 Thou/mm3 (0.0-0.5); Eosinophils % (Auto) 1 % (0-10); Hematocrit 34.1 % (36.0-46.0); Hemoglobin 10.7 g/dL (12.0-16.0); Immature Granulocytes % (Auto) 0 % (0-0); Immature Granulocytes Auto 0.03 Thou/mm3 (0.00-0.00); Lymphocytes % (Auto) 28 % (10-50); Mean Corpuscular HGB Conc 31.4 g/dl (31.0-37.0); Mean Corpuscular Hemoglobin 24.4 pg (25.0-35.0); Mean Corpuscular Volume 78 fL (80-100); Monocytes # (Auto) 0.5 Thou/mm3 (0.0-0.8); Monocytes % (Auto) 6 % (0-12); Neutrophils # (Auto) 4.7 Thou/mm3 (1.8-7.7); Neutrophils % (Auto) 65 % (37-80); Nucleated Red Blood Cell % 0 /100 WBC (0); Platelet Count 271 Thou/mm3 (140-440); RDW Standard Deviation 44.2 fL (36.4-46.3); Red Blood Count 4.38 Miln/mm3 (4.00-5.20); White Blood Count 7.3 Thou/mm3 (3.6-11.0)
[2024-04-30] MEDS: LEVOTHYROXINE SODIUM 25 MCG TABLET 50 MCG PO (05:59)
[2024-04-30 06:18] LABS: Anion Gap 9 (7-16); BUN/Creatinine Ratio 15 Ratio (12-20); Blood Urea Nitrogen 12 mg/dL (9-23); Calcium 9.4 mg/dL (8.3-10.6); Carbon Dioxide 24.7 mMol/L (20.0-31.0); Chloride 108 mMol/L (98-107); Creatinine (Component) 0.8 mg/dL (0.6-1.3); Estimated Creatinine Clearance 56.6 mL/min (>60); Glucose 135 mg/dL (74-106); Osmolality,Calculated 284 (275-295); Phosphorous 3.4 mg/dL (2.4-5.1); Potassium 3.9 mMol/L (3.4-5.1); Sodium 142 mMol/L (136-145); eGFR > 60 See Note
[2024-04-30] MEDS: PANTOPRAZOLE INJ 40 MG VIAL IVP (08:48)
[2024-04-30] MEDS: INSULIN LISPRO (AdmeLOG) 1 UNIT/0.01 ML UNIT SC (08:48)
[2024-04-30] MEDS: levETIRAcetam INJ 100 MG/ML VIAL 5ML 500 MG IVP ×2 (08:48→18:18)
[2024-04-30] MEDS: amLODIPine BESYLATE 5 MG TABLET 2.5 MG PO (08:49)
[2024-04-30] MEDS: LOSARTAN POTASSIUM 25 MG TABLET 50 MG PO (08:49)
[2024-04-30] MEDS: ASPIRIN EC 81 MG TABEC PO (08:49)
[2024-04-30] MEDS: HEPARIN SOD INJ 5000 UNIT/ML VIAL SC (08:49)
--- NOTE | 2024-04-30 13:59 | ESDS_ITS ---
Planned Discharge Date 04/30/24 DS: Providers Provider Date of admission: 04/28/24 15:24 Primary care physician: Physician No Primary/Family Admitting Provider: Norbert Jimenez DO Attending Provider on Admission: Norbert Jimenez DO Consults: 04/28/24 15:30 Referral Speech Therapy Routine Comment: Swallow evaluation 04/28/24 16:48 Consult to Neurology / Tele-Neurology Routine Comment: Consulting Provider: Walt Packer 04/29/24 07:28 Referral Physical Therapy Routine Comment: Physician Instructions: 04/29/24 08:15 Referral - [employer]PER[employer] Consultant Routine Comment: swallow arturo Boykin Attending Provider on DC: Tony Foster MD Discharging Provider: Tony Foster MD DS: Diagnosis Problem List Completed Was Problem List Reviewed/Reconciled?: Yes Hospital Course Hospital Course Hospital course: Amy Ventura is a 74-year-old female with past medical history of Parkinson's disease (?), dementia, hypothyroidism, type 2 diabetes mellitus, hypertension, and hyperlipidemia who presents to the ED on 04/28 after witnessed seizure episode. Niece present at bedside who help provide history and patient lives with granddaughter, who is her cyber ops planner, and also provided history over the phone. Granddaughter witnessed 10 to 15 seconds seizure while at home at approximately 8:15 AM on day of admission. Granddaughter describes stiff body posture and was helped to the ground. Afterwards patient noted to have blood in oral cavity and had a loud snore. At baseline, patient is oriented to self and birthdate but not to year or place and incontinent with her bowel movements and urination. She is also normally very active but was very lethargic day prior to admission. Of note, patient also has scleral hemorrhage that was not present Thursday evening but was Thursday morning. She does have a history of a seizure 1 time approximately a year ago after drinking a bottle of hand double needle stitcher and was taken care of at [facility]. Given that seizure was attributable to consuming hand double needle stitcher, she was not discharged with an AED nor did she follow-up with a neurologist. Niece at bedside also states that patient had consumed dog feces a couple of days ago. Upon further history, patient was treated for syphilis at and around 6 years ago at [facility] in [place]. Family also states that [place] patient was taking care of her mother, but upon returning patient discontinued her Parkinson medications. Throughout hospital course, no acute events noted, including additional seizure episodes. She was started on Keppra 5 mg twice daily. However, blood pressure was noted to increase to 190/98 and amlodipine added for additional blood pressure control. Otherwise, MRI negative for acute hemorrhage or infarct, but noted prominent chronic microvascular white matter changes as well as prominent atrophy. EEG showed diffuse slowing, consistent with dementia but no epileptic waveforms noted. Given that patient had remained seizure-free for 48 hours and labs and vital signs stable, patient was deemed stable for discharge. Neurology recommended to continue the patient Keppra dosage and to follow-up outpatient in 2 weeks. Syphilis serology came back positive and was given a one-time dose of 2,400,000 units of penicillin G benzathine IM and notified family of possible further treatment outpatient pending VDRL/treponemal results. Diagnoses during admission: #Tonic seizure #History of seizure secondary to consumption of hand double needle stitcher #History of syphilis #Reactive syphilis serology #Acute urinary retention #Parkinson's disease #Dementia #Hypothyroidism #Type 2 diabetes mellitus # Hypertensive urgency #Hyperlipidemia Discharge instructions: - Added amlodipine 2.5 mg daily for high blood pressure, and continue taking at least until follow-up with PCP - Start taking Keppra 500 mg twice per day for seizure prevention - Follow-up with neurologist, Dr. Packer, outpatient within 2 weeks of discharge - Otherwise, continue taking all other home medications as prescribed - Follow-up with your PCP within 1 week of discharge - We will follow-up with VDRL/treponemal testing for positive syphilis serology testing - If positive, anticipate phone call and will recommend to see PCP to complete course of remaining doses - Return to the ED if symptoms worsen or recur ----- Plan discussed with attending physician Dr. Toyn Foster MD PGY-1 Internal Medicine Time Spent with Patient Time attestation: Total time spent providing and/or coordinating discharge services: Exam Vital Signs Temp Pulse Resp BP Pulse Ox O2 Del Method 97.5 F 61 16 128/67 95 Room Air 04/30/24 11:55 04/30/24 11:55 04/30/24 11:55 04/30/24 11:55 04/30/24 11:55 04/30/24 11:55 Narrative Exam General: alert, resting comfortably in bed, eating breakfast without issue HEENT: Dried blood on right side of mouth, right-sided scleral hemorrhage, unable to obtain full review of oral cavity Cardiovascular: Bradycardic, regular rhythm, loud systolic murmur appreciated Pulmonary: clear to auscultation bilaterally, no rales/rhonchi/wheezes Abdominal: soft, non-tender, non-distended, no rebound/guarding, normal bowel sounds present Musculoskeletal: no peripheral edema Skin: warm and dry, intact, no rashes Neuro: Alert, responds to name, able to follow simple command by giving thumbs up Discharge Plan Plan Patient Disposition: HOME (Self Care) Care Plan Goals: - Added amlodipine 2.5 mg daily for high blood pressure, and continue taking at least until follow-up with PCP - Start taking Keppra 500 mg twice per day for seizure prevention - Follow-up with neurologist, Dr. Packer, outpatient within 2 weeks of discharge - Otherwise, continue taking all other home medications as prescribed - Follow-up with your PCP within 1 week of discharge - We will follow-up with VDRL/treponemal testing for positive syphilis serology testing - If positive, anticipate phone call and will recommend to see PCP to complete course of remaining doses - Return to the ED if symptoms worsen or recur Prescriptions/Referrals Prescriptions/Med Rec: New levetiracetam 500 mg tablet 500 mg PO Q12HR 30 Days Qty: 60 0RF amlodipine 5 mg Tablet 2.5 mg PO QDAY 30 Days Qty: 30 0RF Continued losartan 50 mg tablet 50 mg PO DAILY Patient Comments: TAKE 1 TABLET BY MOUTH EVERY DAY FOR 30 DAYS metformin 500 mg tablet 500 mg PO DAILY Patient Comments: TAKE 1 TABLET BY MOUTH TWICE A DAY WITH MEAL 15 DAYS atorvastatin 20 mg tablet 20 mg PO DAILY aspirin 81 mg tablet,delayed release (DR/EC) 81 mg PO DAILY Patient Comments: TAKE 1 TABLET BY MOUTH EVERY DAY levothyroxine 50 mcg tablet 50 mcg PO DAILY Patient Comments: TAKE 1 TABLET BY MOUTH EVERY DAY Referrals: No Primary/Family,Physician [Primary Care Provider] - Patient/Caregiver Discharge Instructions Education Materials: Checking Your Own Blood Pressure, First Aid: Seizures, Dementia Patients Safety Tips, Seizures and Epilepsy Print Language: Icelandic Stand Alone Forms: [facility] Award Info., Patient Portal Info Letter Discharge Order Discharge Orders: Discharge (Routine); Ordered 04/30/24 Ordered By: Tony Madrid [facility] Quality Discharge Quality Measures VTE prophylaxis Attestestation Attestation I have discussed and was present for the essential components of the discharge history, physical examination, diagnosis, and discharge treatment plan with the resident. I agree with the patient's discharge care as documented by the resident and amended herein by me. Jeff Jimenez, DO. The patient understood all discharge instructions, all questions were answered satisfactorily. The patient was instructed to return to the Emergency Department is symptoms worsened or persisted. Patient was stable, afebrile, tolerating p.o. intake and demonstrating significant improved mentation upon discharge. Although this document has been carefully reviewed, there may still be some phonetic and other typographical errors. These errors are purely grammatical due to imperfections in the software program and should not be construed in any way to compromise the substance of the patient's medical care during this visit.
[2024-04-30] MEDS: PEN G BENZ (Bicillin LA) 2.4 MMU/4 ML SYRG IM (14:29)
--- NOTE | 2024-04-30 19:33 | PC.NURSE ---
Pt caregiver stated that pharmacy already closed. Notified Dr. Baxter and ordered x1 dose of keppra before discharge to cover tonight until family is able to bead picker prescription at pharmacy. Notified Dr. Moffett of bradycardia HR lowest 49, ok to still discharge. Notified Dr. Moffett PT recomendation of possible FWW, pt was able to ambulate down hallway with 2 person assist. Educated caregiver to call social worker clinical tomorrow with follow up questions and family stated can get walker from pharmacy if needed.
--- NOTE | 2024-04-30 23:56 | PD.VPROG1 ---
Telemedicine visit statement This visit was conducted with the use of interactive audio and video telecommunications system that permits real time communication between the patient and the provider. Patient's verbal consent for virtual visit was obtained on 04/30/24 at 2356. Documentation for date of: 04/30/24 Subjective Subjective Interval history: Patient is in telemetry. No seizures reported after admission. Her mental status is improving gradually close to baseline. Virtual exam Vital Signs Temp Pulse Resp BP Pulse Ox O2 Del Method 96.7 F L 78 24 H 149/82 H 94 L Room Air 04/30/24 18:40 04/30/24 18:40 04/30/24 18:40 04/30/24 18:40 04/30/24 18:40 04/30/24 18:40 Objective Labs 04/30/24 05:22 04/30/24 05:22 Labs: Laboratory Results - last 24 hr 04/30/24 05:22 WBC 7.3 RBC 4.38 Hgb 10.7 L Hct 34.1 L MCV 78 L MCH 24.4 L MCHC 31.4 RDW Std Deviation 44.2 Plt Count 271 Neut % (Auto) 65 Lymph % (Auto) 28 [place] % (Auto) 6 Eos % (Auto) 1 Baso % (Auto) 1 Neut # (Auto) 4.7 Lymph # (Auto) 2.0 [place] # (Auto) 0.5 Eos # (Auto) 0.1 Baso # (Auto) 0.0 Immature Gran # (Auto) 0.03 H Absolute Nucleated RBC 0.00 Immature Gran % 0 Nucleated RBC % 0 Sodium 142 Potassium 3.9 Chloride 108 H Carbon Dioxide 24.7 Anion Gap 9 BUN 12 Creatinine 0.8 Estim Creat Clear Calc 56.6 L eGFR > 60 BUN/Creatinine Ratio 15 Glucose 135 H Calculated Osmolality 284 Calcium 9.4 Phosphorus 3.4 Magnesium 2.0 Assessment & Plan Problem List (1) New onset seizure: Status: Acute Assessment and plan: No seizures reported after admission. Continue with the Keppra 500 mg twice a day. EEG showed normal study but it does not rule out the diagnosis of seizures . Follow-up in 2 weeks. Stable for discharge home. (2) Alzheimer's dementia: Status: Chronic Assessment and plan: She did try memantine and the donepezil in the past but discontinued as family did not show any improvement. Will consider adding Exelon patch when I see her in follow-up as an outpatient. Will evaluate her for Parkinson's disease as well. (3) Hypertension: Status: Chronic Assessment and plan: Under control on amlodipine and losartan (4) Type 2 diabetes mellitus: Status: Chronic Assessment and plan: Continue to keep the diabetes under control on metformin (5) Hypothyroidism: Status: Chronic Assessment and plan: Continue levothyroxine
== END 2024-04-30 19:02 | disposition home or self-care (01) | DRG 100 ==
LOC: SERX 13:43 → SERHOLD 16:07 → S2NX 04-29 05:39
PROVIDERS: Admitting Provider Student in an Organized Health Care Education/Training Program; Emergency Provider Emergency Medicine; Visit Provider Student in an Organized Health Care Education/Training Program
DX: R56.9 Unspecified convulsions (principal); G93.41 Metabolic encephalopathy; F02.80 Dementia in other diseases classified elsewhere, unspecified severity, without behavioral disturbance, psychotic disturbance, mood disturbance, and anxiety; E03.9 Hypothyroidism, unspecified; E11.9 Type 2 diabetes mellitus without complications; I16.0 Hypertensive urgency; G30.9 Alzheimer's disease, unspecified; I10 Essential (primary) hypertension; R33.9 Retention of urine, unspecified; E78.5 Hyperlipidemia, unspecified; G20.A1 Parkinson's disease without dyskinesia, without mention of fluctuations; A53.9 Syphilis, unspecified; D64.9 Anemia, unspecified; Z79.899 Other long term (current) drug therapy; Z79.84 Long term (current) use of oral hypoglycemic drugs; G31.9 Degenerative disease of nervous system, unspecified; G93.89 Other specified disorders of brain
CPT/HCPCS: 36415; 70450; 70551; 71045; 80048; 80053; 80061; 80307; 81001; 82550; 83036; 83735; 84100; 84443; 85025; 86780; 92526; 92610; 93005; 95816; 96372; 96374; 97162; 99285; J0360; J0561; J1200; J1643; J1815; J1953; J2470; J7120; A9270